=== PATIENT | female | born 1990 | race Caucasian/White ===

== ENCOUNTER 2023-06-22 13:06 | Emergency (ER) | payer MEDICAID ==
[2023-06-22 14:13] VITALS: PULSE 76; TEMP 97; O2SAT 100
[2023-06-22] MEDS ORDERED: MOTRIN 600 MG PO ONE (14:16)
[2023-06-22] MEDS ORDERED: TYLENOL 325 MG PO ONE (14:16)
[2023-06-22] MEDS ORDERED: TYLENOL 325 MG ONE (14:45)
[2023-06-22] MEDS ORDERED: MOTRIN 600 MG ONE (14:45)
--- NOTE | 2023-06-22 14:46 | ERPHSYRPT ---
- History of Present Illness Time Seen by Provider: 06/22/23 14:42 Source: patient Exam Limitations: no limitations Patient Subjective Stated Complaint: Pt was walking the dog and stepped into a hole and twisted her left ankle and heard a pop Triage Nursing Assessment: Pt brought to the ER by her boyfriend, vitals wnl, rates pain as 8/10, left lateral ankle swollen, no bruising noted, pulses normal, denies any other injuries Physician History: Pt was walking the dog and stepped into a hole and twisted her left ankle and heard a pop Method of Injury: fell, twisted Occurred: just prior to arrival Quality: constant Lower Extremities Pain: ankle: left Modifying Factors: Improves With: cold therapy Associated Symptoms: unable to bear weight Allergies/Adverse Reactions: No Known Drug Allergies Allergy (Verified 06/22/23 14:14) Hx Tetanus, Diphtheria Vaccination/Date Given: No (1 year ago) Hx Influenza Vaccination/Date Given: No Hx Pneumococcal Vaccination/Date Given: No Travel Risk - International Travel Have you traveled outside of the country in past 3 weeks: No - Coronavirus Screening Are you exhibiting any of the following symptoms?: No Close contact with a COVID-19 positive Pt in past 14-21 Days: No - Vaccine Status Have you recieved a Covid-19 vaccination: No - Review of Systems Constitutional: No Symptoms Eyes: No Symptoms Ears, Nose, & Throat: No Symptoms Respiratory: No Symptoms Cardiac: No Symptoms Abdominal/Gastrointestinal: No Symptoms Genitourinary Symptoms: No Symptoms Musculoskeletal: Fall, Joint Swelling (left ankle) - Past Medical History Pertinent Past Medical History: Yes Neurological History: Seizures, TIA Cardiac History: Hypertension, Myocardial Infarction ([place]) Other Medical History: ptsd, bpd, - Past Surgical History Past Surgical History: Yes Gastrointestinal: Cholecystectomy Female Surgical History: Hysterectomy, Tubal Ligation - Social History Smoking Status: Current every day smoker Exposure to second hand smoke: Yes Drug Use: none Patient Lives Alone: No - Female History Hx Now: No (partial hysterectomy) - Nursing Vital Signs Nursing Vital Signs: Initial Vital Signs Temperature 97.0 F 06/22/23 14:05 Pulse Rate 76 06/22/23 14:05 Blood Pressure 122/88 06/22/23 14:05 O2 Sat by Pulse Oximetry 100 06/22/23 14:05 Pain Scale Pain Intensity 8 - Physical Exam General Appearance: no apparent distress Eyes, Ears, Nose, Throat Exam: normal ENT inspection Neck Exam: normal inspection Gastrointestinal/Abdominal Exam: non-tender Back Exam: normal inspection Hips Exam: bilateral: non-tender Legs Exam: bilateral leg: non-tender Knees Exam: bilateral knee: non-tender Ankle Exam: left ankle: joint effusion, limited range of motion, soft tissue tenderness, swelling SpO2: 100 Procedures - Splinting Time of Procedure: 14:43 Location of Splint: Left, Ankle Type of Splint: Walking Boot/Shoe Splint Applied By: ED Nurse Pre-Proc Neuro Vasc Exam: normal Post-Proc Neuro Vasc Exam: neurovascular intact - Course Nursing assessment & vital signs reviewed: Yes - Radiology Exams Ankle X-ray Interpretation: Reviewed by me, Non-displaced Fracture Ordered Tests: Active Orders 24 hr Category Date Time Status Splint STAT Care 06/22/23 14:41 Active ANKLE (3 VIEWS) Stat Exams 06/22/23 14:15 Taken Medication Summary Discontinued Medications Generic Name Dose Route Start Last Admin Trade Name Freq PRN Reason Stop Dose Admin Acetaminophen 975 mg 06/22/23 14:16 Acetaminophen 325 Mg Tablet PO 06/22/23 14:17 STAT ONE Ibuprofen 600 mg 06/22/23 14:16 Ibuprofen 600 Mg Tablet PO 06/22/23 14:17 STAT ONE - Progress Progress: improved, pain not gone completely Counseled pt/family regarding: diagnosis, need for follow-up, rad results Medical Desision Making - Diagnostic Testing Diagnostic test were ordered, analyzed, and reviewed by me: Yes Radiological Interpretation: Reviewed by me - Risk of complications Low Risk: Low risk of morbidity from additional dx testing or treatment - Departure Departure Disposition: Home Clinical Impression: Closed fibular fracture Qualifiers: Encounter type: initial encounter Fibula location: lateral malleolus Fracture alignment: nondisplaced Laterality: left Qualified Code(s): S82.65XA - Nondisplaced fracture of lateral malleolus of left fibula, initial encounter for closed fracture Condition: Stable Critical Care Time: No Referrals: DOCTOR,NO FAMILY [Primary Care Provider] - [facility] M-[id number] Instructions: Ankle Fracture (DC) Additional Instructions: Discharge/Care Plan FRANKMADDI NICOLE was seen on 06/22/23 in the Emergency Room. The patient was counseled regarding Diagnosis,Lab results, Imaging studies, need for follow up and when to return to the Emergency Room. Prescriptions given: Discharge Note I have spoken with the patient and/or caregivers. I have explained the patient's condition, diagnosis and treatment plan based on the information available to me at this time. I have answered the patient's and/or caregiver's questions and addressed any concerns. The patient and/or caregivers have as good understanding of the patient's diagnosis, condition and treatment plan as can be expected at this point. The vital signs have been stable. The patient's condition is stable and appropriate for discharge from the emergency department. The patient will pursue further outpatient evaluation with the primary care physician or other designated or consulting physician as outlined in the discharge instructions. The patient and/or caregivers are agreeable to this plan of care and follow-up instructions have been explained in detail. The patient and/or caregivers have received these instruction. The patient/and or caregivers are aware that any significant change in condition or worsening of symptoms should prompt an immediate return to this or the closest emergency department or call 911. MADDI MARIE was seen on 06/22/23 n the Emergency Room. At that time you were treated for an emergent condition, during your visit Laboratory, Radiology and/or other procedures may have been ordered. It is very important that you follow-up with your Primary Care Physician NO FAMILY DOCTOR within the next 24-48 hours to review your Emergency Room visit and the final results of testing that was ordered. Some test results such as Urine Cultures, Blood Cultures, and other cultures if ordered will not be finalized for 24-48 hours. If you do not have a Primary Care Provider please call the medical records department at [phone] ext [phone] to obtain a copy of your results or you may sign into our patient portal to obtain these results by visiting us @ [email or web address] and completing the following steps: 1. Click on the Patient Portal link 2. Click the Patient Self Enrollment Link to complete the enrollment form and entering your 3. Once the enrollment form is completed you will receive an email with a temporary ID and password at the email address you provided. 4. Next choose a user name and password. Your user name must be at least 4 characters long and your password must be at least 4 characters long. 5. Choose a security question from the list and provide your answer to the question. If you already have signed into the Health Portal you may access your Health Care Information 04/02 by the following steps: 1. Login to our website @ [email or web address] 2. Enter your original user name and password. FAQS [facility] Portal is an online tool that contains your Lab Results, Radiology Reports, Visit History, Discharge Instructions and Health Summary Lab and Radiology Results will not be available for 72 hours on the portal. The Portal is a secure site, passwords are encryted and URLs are re-written so they cannot be copied and pasted. You and authorized family members are the only ones who can access your Portal. Also there is a timeout feature that protects your information if you leave the Portal page open. If you have technical difficulty please use the Contact Us link on the page this will allow you to submit any questions you have regarding the Portal or you may contact the Medical Record Department at [phone] ext [phone]. Prescriptions: Naproxen 375 mg [Naprosyn 375 mg] 375 mg PO Q8H #30 tablet
[2023-06-22 14:58] VITALS: BP 132/90
--- NOTE | 2023-06-22 21:13 | XRAY ---
Indication: Pain following injury. Comparison: None 3 nonweightbearing views left ankle demonstrates nondisplaced fracture tip lateral malleolus with soft tissue swelling. Incidental tiny posterior/small heel spurs. No other bony, articular, or soft tissue abnormalities.
== END 2023-06-22 15:01 | disposition home or self-care (01) ==
LOC: ED 13:06
DX: S82.65XA Nondisplaced fracture of lateral malleolus of left fibula, initial encounter for closed fracture (principal); W18.42XA Slipping, tripping and stumbling without falling due to stepping into hole or opening, initial encounter; Y93.K1 Activity, walking an animal; I10 Essential (primary) hypertension; Z28.310 Unvaccinated for COVID-19; Z72.0 Tobacco use
CPT/HCPCS: 73610; 99283; L4386; A9270-GY